=== PATIENT | female | born 1995 | race African-American/Black ===

== ENCOUNTER 2021-04-20 10:03 | Emergency (ER) | payer SELFPAY ==
[2021-04-20 11:14] LABS: #Eosinphils 0.3 10x3/uL (0.0-0.5); #Monocytes 0.4 10x3/uL (0.0-1.1); %Basophils 0.4 % (0.0-2.0); %Eosinophils 3.6 % (0.0-6.0); %Monocytes 4.6 % (0.0-10.0); Hemoglobin 9.9 g/dL (12.0-15.5); Mean Corpuscular HGB CONC 30.6 g/dL (32.0-36.0); Mean Corpuscular Hemoglobin 26.9 pg (27.0-33.0); Mean Platelet Volume 10.8 fl (7.4-10.4); Platelet Count 410 10x3/uL (150-450); RBC Distribution Width 13.2 % (11.5-14.5); Red Blood Cell (RBC) Count 3.68 10x6/uL (3.90-5.03); White Blood Cell (WBC) Count 8.9 10x3/uL (3.5-10.5)
[2021-04-20] MEDS ORDERED: Ketorolac Tromethamine 30 MG/ML VIAL ONE (11:25)
[2021-04-20] MEDS ORDERED: Metoclopramide HCl 10 MG/2 ML VIAL ONE (11:25)
[2021-04-20 11:27] LABS: ALT (SGPT) 41 U/L (8-55); AST (SGOT) 31 U/L (5-34); Albumin 3.9 g/dL (3.5-5.0); Alkaline Phosphatase 91 U/L (40-110); Anion Gap 13 mmol/L (10-20); BUN (Urea Nitrogen) 10 mg/dL (7.0-18.7); Bilirubin, Total 0.4 mg/dL (0.2-1.2); Calc. Creatinine Clearance 0 mL/min (70-130); Calcium 8.6 mg/dL (7.8-10.44); Carbon Dioxide 23 mmol/L (22-29); Chloride 107 mmol/L (98-107); Globulin 3.3 g/dL (2.4-3.5); Glucose 119 mg/dL (70-105); Protein, Total 7.2 g/dL (6.0-8.3); Sodium 139 mmol/L (136-145)
== END 2021-04-20 13:15 | disposition home or self-care (01) ==
LOC: CSHERS 10:03
DX: R51.9 Headache, unspecified (principal); D64.9 Anemia, unspecified; N93.9 Abnormal uterine and vaginal bleeding, unspecified; E66.9 Obesity, unspecified; J45.909 Unspecified asthma, uncomplicated; Z79.899 Other long term (current) drug therapy
CPT/HCPCS: 36415; 80053; 85025; 93005; 96365; 96375; J1885; J2765

== ENCOUNTER 2022-01-22 22:31 | Emergency (ER) | payer SELFPAY | END 2022-01-22 23:33 | disposition home or self-care (01) | LOC: CSHERS 22:31 | DX: H60.91 Unspecified otitis externa, right ear (principal) | CPT/HCPCS: 99282 ==

== ENCOUNTER 2024-06-01 17:15 | Emergency (ER) | payer SELFPAY ==
[2024-06-01 18:35] LABS: #Basophils 0.03 10x3/uL (0.0-0.2); #Monocytes 0.45 10x3/uL (0.0-1.1); #Neutrophils 4.67 10x3/uL (1.5-8.4); %Basophils 0.4 % (0.0-2.0); %Eosinophils 2.5 % (0.0-6.0); %Lymphocytes 32.7 % (18.0-47.0); %Monocytes 5.6 % (0.0-10.0); %Neutrophils 58.5 % (40.0-75.0); Hematocrit 41.1 % (34.9-44.5); Mean Corpuscular HGB CONC 31.6 g/dL (32.0-36.0); Mean Corpuscular Volume 88.4 fL (81.6-98.3); Platelet Count 335 10x3/uL (150-450); RBC Distribution Width 12.4 % (11.5-14.5); Red Blood Cell (RBC) Count 4.65 10x6/uL (3.90-5.03)
[2024-06-01 18:37] LABS: ALT (SGPT) 350 U/L (8-55); AST (SGOT) 354 U/L (5-34); Albumin 3.2 g/dL (3.5-5.0); Alkaline Phosphatase 162 U/L (40-110); Anion Gap 12 mmol/L (10-20); BUN (Urea Nitrogen) 10 mg/dL (7.0-18.7); Bilirubin, Total 1.7 mg/dL (0.2-1.2); Calc. Creatinine Clearance 0 mL/min (70-130); Carbon Dioxide 25 mmol/L (22-29); Chloride 106 mmol/L (98-107); Estimated GFR 103; Globulin 4.1 g/dL (2.4-3.5); Glucose 102 mg/dL (70-105); Lipase 16 U/L (8-78); Potassium 3.7 mmol/L (3.5-5.1); Protein, Total 7.3 g/dL (6.0-8.3); Sodium 139 mmol/L (136-145)
[2024-06-01 18:40] LABS: Bilirubin 3+ (Negative); Blood, Urine Negative (Negative); Clarity Cloudy (Clear); Glucose, Urine (Dipstick) Normal (Negative); Ketone, Urine Negative (Negative); Leukocyte 25 (Negative); Nitrite Negative (Negative); Protein, Urine (Dipstick) 30 mg/dl (Neg-Trace)
[2024-06-01 19:19] LABS: Bacteria/HPF 2+ HPF (None Seen); CAUTI Indications for Culture Pelvic or flank pain; RBC/HPF 0-3 HPF (0-3); Urine Culture Reflex No No; WBC/HPF 0-3 HPF (0-3)
[2024-06-01] MEDS ORDERED: Ketorolac Tromethamine 30 MG (1 mL) VIAL ONE (19:27)
== END 2024-06-01 20:17 | disposition home or self-care (01) ==
LOC: CSHERS 17:15
DX: K80.20 Calculus of gallbladder without cholecystitis without obstruction (principal); K76.0 Fatty (change of) liver, not elsewhere classified
CPT/HCPCS: 36415; 76705; 80053; 81001; 83690; 85025; 87086; 96372; J1885